=== PATIENT | female | born 1935 | race Caucasian/White ===

== ENCOUNTER 2021-02-06 22:22 | Inpatient (IN) | payer MEDICARE, BC ==
[~2021-02-06] VITALS: Ht 157.5 cm; Wt 51.7 kg
[2021-02-06] MEDS ORDERED: AMLO1CAP6 PO (22:36)
[2021-02-06] MEDS ORDERED: QUET25TA PO (22:36)
[2021-02-06] MEDS ORDERED: ACET-73 PO (22:36)
[2021-02-06] MEDS ORDERED: DONE10TA44 PO (22:36)
[2021-02-06] MEDS ORDERED: TRAZ-182 PO (22:36)
[2021-02-06] MEDS ORDERED: TEMA15CA PO (22:36)
[2021-02-06] MEDS ORDERED: LORA-258 PO (22:36)
[2021-02-06] MEDS ORDERED: RISP0.5T65 PO (22:36)
[2021-02-06 22:59] LABS: HEMATOCRIT 40.9 % (31.2-41.9); MEAN CORPUSCULAR HEMOGLOBIN 29.6 uug (24.7-32.8); MEAN CORPUSCULAR VOLUME 90.6 fL (75.5-95.3); PLATELET COUNT (AUTO) 254 K/uL (179-408)
[2021-02-06 23:12] LABS: CREATININE 1.1 mg/dL (0.6-1.3); POTASSIUM 3.9 mmol/L (3.5-5.1)
[2021-02-06 23:17] LABS: BILIRUBIN,DIRECT 0.1 mg/dL (0.0-0.2); BILIRUBIN,TOTAL 0.2 mg/dL (0.2-1.0); TOTAL PROTEIN, SERUM 6.9 g/dL (6.4-8.2)
[2021-02-06] MEDS ORDERED: LORAZEPAM 2 MG/1 ML VIAL IV ONE (23:30)
[2021-02-06] MEDS ORDERED: LORAZEPAM 2 MG/1 ML VIAL ONE (23:49)
[2021-02-07] MEDS ORDERED: PIPERACILLIN SODIUM/TAZOBACTAM 3.375 G in IV DEXTROSE 5% 50 ML IV ONE (01:00)
[2021-02-07] MEDS ORDERED: LORAZEPAM 2 MG/1 ML VIAL IV ONE (01:00)
[2021-02-07] MEDS ORDERED: LORAZEPAM 2 MG/1 ML VIAL ONE (01:54)
[2021-02-07] MEDS ORDERED: PIPERACILLIN/TAZOBACTAM/D5W 50 ML IV ONE ×2 (01:55→02:18)
[2021-02-07] MEDS ORDERED: Z GUARD REMEDY PASTE 57 GM TUBE TOP PRN (02:15)
[2021-02-07] MEDS ORDERED: ONDANSETRON 4 MG/2 ML VIAL IV PRN (02:15)
[2021-02-07] MEDS ORDERED: MAGNESIUM HYDROXIDE 30 ML LIQUID UDC PO PRN (02:15)
[2021-02-07] MEDS ORDERED: LABETALOL HCL 100 MG/20 ML VIAL IV ONE (05:15)
[2021-02-07] MEDS ORDERED: LABETALOL HCL 100 MG/20 ML VIAL ONE (05:28)
[2021-02-07 07:06] VITALS: BP 167/86
[2021-02-07] MEDS: PANTOPRAZOLE SODIUM 40 MG TABLET.DR PO SCH (08:00)
[2021-02-07 08:28] LABS: HEMATOCRIT 42.6 % (31.2-41.9); MEAN CORPUSCULAR HEMOGLOBIN 30.8 uug (24.7-32.8); MEAN CORPUSCULAR VOLUME 90.6 fL (75.5-95.3); PLATELET COUNT (AUTO) 293 K/uL (179-408)
[2021-02-07 08:54] LABS: MAGNESIUM 2.1 mg/dL (1.8-2.4); PHOSPHOROUS 3.1 mg/dL (2.5-4.9); POTASSIUM 3.5 mmol/L (3.5-5.1)
[2021-02-07] MEDS ORDERED: PIPERACILLIN SODIUM/TAZOBACTAM 3.375 G in IV DEXTROSE 5% 50 ML IV SCH (09:00)
[2021-02-07] MEDS: PIPERACILLIN SODIUM/TAZOBACTAM 3.375 G in IV DEXTROSE 5% 100 ML IV SCH ×2 (09:45→18:24)
[2021-02-07] MEDS: QUETIAPINE FUMARATE 25 MG TABLET PO SCH ×3 (11:00→17:00)
[2021-02-07] MEDS ORDERED: hydrALAZINE HCL 25 MG TABLET PO PRN (11:00)
[2021-02-07 11:33] LABS: THYROID STIMULATING HORMONE 1.729 mIU/mL (0.358-3.740)
[2021-02-07] MEDS: LORAZEPAM 0.5 MG TABLET PO PRN (11:55)
[2021-02-07] MEDS: DONEPEZIL 10 MG TABLET PO SCH ×2 (11:55→12:00)
[2021-02-07] MEDS: AMLODIPINE 5 MG TABLET PO SCH (12:00)
[2021-02-07] MEDS: BENAZEPRIL HCL 20 MG TABLET PO SCH (12:00)
[2021-02-07] MEDS ORDERED: HALOPERIDOL DECANOATE 50 MG/1 ML AMPUL IM ONE (12:15)
[2021-02-07] MEDS ORDERED: HALOPERIDOL LACTATE 5 MG/1 ML VIAL IM ONE (12:30)
[2021-02-07 15:58] VITALS: BP 153/88
[2021-02-07] MEDS: ACETAMINOPHEN 325 MG TABLET PO PRN (18:40)
[2021-02-07 20:00] VITALS: BP 137/87
[2021-02-07] MEDS: TRAZODONE 50 MG TABLET PO SCH (21:09)
[2021-02-07] MEDS: ATORVASTATIN 40 MG TABLET PO SCH (21:09)
[2021-02-07] MEDS: risperiDONE 0.5 MG TABLET PO SCH (21:13)
[2021-02-08 00:05] VITALS: BP 111/73
[2021-02-08] MEDS: ACETAMINOPHEN 325 MG TABLET PO PRN (00:05)
[2021-02-08] MEDS: TEMAZEPAM 15 MG CAPSULE PO PRN (00:06)
[2021-02-08] MEDS: PIPERACILLIN SODIUM/TAZOBACTAM 3.375 G in IV DEXTROSE 5% 100 ML IV SCH ×3 (01:34→17:12)
[2021-02-08 04:13] VITALS: BP 111/69
[2021-02-08 06:19] LABS: HEMATOCRIT 40.1 % (31.2-41.9); MEAN CORPUSCULAR HEMOGLOBIN 30.1 uug (24.7-32.8); MEAN CORPUSCULAR VOLUME 89.9 fL (75.5-95.3); PLATELET COUNT (AUTO) 257 K/uL (179-408)
[2021-02-08] MEDS: PANTOPRAZOLE SODIUM 40 MG TABLET.DR PO SCH (06:31)
[2021-02-08 06:45] LABS: BILIRUBIN,TOTAL 0.6 mg/dL (0.2-1.0); CREATININE 1.3 mg/dL (0.6-1.3); MAGNESIUM 2.2 mg/dL (1.8-2.4); PHOSPHOROUS 4.1 mg/dL (2.5-4.9); POTASSIUM 4.3 mmol/L (3.5-5.1); TOTAL PROTEIN, SERUM 6.8 g/dL (6.4-8.2)
[2021-02-08] MEDS: AMLODIPINE 5 MG TABLET PO SCH (08:55)
[2021-02-08] MEDS: DONEPEZIL 10 MG TABLET PO SCH (08:55)
[2021-02-08] MEDS: LORAZEPAM 0.5 MG TABLET PO PRN (08:55)
[2021-02-08] MEDS: QUETIAPINE FUMARATE 25 MG TABLET PO SCH ×2 (08:56→17:00)
[2021-02-08] MEDS: BENAZEPRIL HCL 20 MG TABLET PO SCH (08:56)
[2021-02-08 11:58] VITALS: BP 156/85
[2021-02-08 16:09] VITALS: BP 145/83
[2021-02-08 20:00] VITALS: BP 160/83
[2021-02-08 20:52] VITALS: BP 146/81
[2021-02-08] MEDS: ATORVASTATIN 40 MG TABLET PO SCH (21:00)
[2021-02-08] MEDS: TRAZODONE 50 MG TABLET PO SCH (21:00)
[2021-02-08] MEDS: risperiDONE 0.5 MG TABLET PO SCH (21:00)
[2021-02-09] VITALS: BP 162/77
[2021-02-09 04:00] VITALS: BP 165/94
[2021-02-09] MEDS: PANTOPRAZOLE SODIUM 40 MG TABLET.DR PO SCH (06:22)
[2021-02-09 06:25] VITALS: BP 149/90
[2021-02-09] MEDS: QUETIAPINE FUMARATE 25 MG TABLET PO SCH ×2 (09:04→17:23)
[2021-02-09] MEDS: DONEPEZIL 10 MG TABLET PO SCH (09:05)
[2021-02-09] MEDS: AMLODIPINE 5 MG TABLET PO SCH (09:05)
[2021-02-09] MEDS: BENAZEPRIL HCL 20 MG TABLET PO SCH (09:05)
[2021-02-09 12:00] VITALS: BP 134/74
[2021-02-09 16:26] VITALS: BP 142/94
[2021-02-09 20:20] VITALS: BP 131/88
[2021-02-09] MEDS: ATORVASTATIN 40 MG TABLET PO SCH (21:31)
[2021-02-09] MEDS: TRAZODONE 50 MG TABLET PO SCH (21:31)
[2021-02-09] MEDS: risperiDONE 0.25 MG TABLET PO SCH (21:32)
[2021-02-09] MEDS: ACETAMINOPHEN 325 MG TABLET PO PRN (22:45)
[2021-02-10 04:20] VITALS: BP 122/73
[2021-02-10] MEDS: PANTOPRAZOLE SODIUM 40 MG TABLET.DR PO SCH (06:11)
[2021-02-10 06:30] LABS: HEMATOCRIT 39.9 % (31.2-41.9); MEAN CORPUSCULAR HEMOGLOBIN 30.5 uug (24.7-32.8); MEAN CORPUSCULAR VOLUME 90.4 fL (75.5-95.3); PLATELET COUNT (AUTO) 253 K/uL (179-408)
[2021-02-10 06:55] LABS: CREATININE 1.1 mg/dL (0.6-1.3); MAGNESIUM 2.3 mg/dL (1.8-2.4); POTASSIUM 3.7 mmol/L (3.5-5.1)
[2021-02-10] MEDS: AMLODIPINE 5 MG TABLET PO SCH (08:57)
[2021-02-10] MEDS: DONEPEZIL 10 MG TABLET PO SCH (08:58)
[2021-02-10] MEDS: QUETIAPINE FUMARATE 25 MG TABLET PO SCH ×2 (08:58→17:33)
[2021-02-10] MEDS: BENAZEPRIL HCL 20 MG TABLET PO SCH (08:58)
[2021-02-10 12:00] VITALS: BP 131/44
[2021-02-10] MEDS: LORAZEPAM 0.5 MG TABLET PO PRN (12:42)
[2021-02-10 16:03] VITALS: BP 106/69
[2021-02-10] MEDS: ENSURE ENLIVE (VAN) 240 ML LIQUID PO SCH (17:33)
[2021-02-10 20:05] VITALS: BP 109/70
[2021-02-10] MEDS: TRAZODONE 50 MG TABLET PO SCH (21:00)
[2021-02-10] MEDS: ATORVASTATIN 40 MG TABLET PO SCH (21:00)
[2021-02-10] MEDS: risperiDONE 0.25 MG TABLET PO SCH (21:00)
[2021-02-10] MEDS: TEMAZEPAM 15 MG CAPSULE PO PRN (23:44)
[2021-02-11 04:10] VITALS: BP 144/87
[2021-02-11] MEDS: PANTOPRAZOLE SODIUM 40 MG TABLET.DR PO SCH (06:16)
[2021-02-11] MEDS: DONEPEZIL 10 MG TABLET PO SCH (08:25)
[2021-02-11] MEDS: BENAZEPRIL HCL 20 MG TABLET PO SCH (08:25)
[2021-02-11] MEDS: QUETIAPINE FUMARATE 25 MG TABLET PO SCH (08:25)
[2021-02-11] MEDS: AMLODIPINE 5 MG TABLET PO SCH (08:25)
[2021-02-11] MEDS: ENSURE ENLIVE (VAN) 240 ML LIQUID PO SCH (08:40)
[2021-02-11] MEDS ORDERED: ATOR20TA PO (10:59)
[2021-02-11] MEDS ORDERED: AMOX-430 PO (10:59)
[2021-02-11 13:11] VITALS: BP 135/81
[2021-02-11 15:35] VITALS: BP 132/81
== END 2021-02-11 15:45 | DRG 871 ==
LOC: ER 22:25 → TELE3 02-07 06:06 → MEDSURG3 02-09 10:51
PROVIDERS: ADMIT Hospitalist; ATTEND Hospitalist
DX: A41.9 Sepsis, unspecified organism (principal); G92 Toxic encephalopathy; J18.9 Pneumonia, unspecified organism; J69.0 Pneumonitis due to inhalation of food and vomit; N17.0 Acute kidney failure with tubular necrosis; D68.59 Other primary thrombophilia; E46 Unspecified protein-calorie malnutrition; Z20.822 Contact with and (suspected) exposure to COVID-19; Z74.09 Other reduced mobility; F03.90 Unspecified dementia, unspecified severity, without behavioral disturbance, psychotic disturbance, mood disturbance, and anxiety; E78.5 Hyperlipidemia, unspecified; Z86.73 Personal history of transient ischemic attack (TIA), and cerebral infarction without residual deficits; G58.9 Mononeuropathy, unspecified; M48.02 Spinal stenosis, cervical region; I11.9 Hypertensive heart disease without heart failure; Z68.20 Body mass index [BMI] 20.0-20.9, adult; Z91.81 History of falling
CPT/HCPCS: 36415; 70030-TC; 70450; 71045; 72125; 83735; 84100; 84443; 85025; 85730; 87040; 87070; 93005; G0378; J1630; J2060; J2543; J3490; J7050; J7060

== ENCOUNTER 2021-04-05 07:07 | Inpatient (IN) | payer MEDICARE, BC ==
[~2021-04-05] VITALS: Ht 152.4 cm; Wt 48.5 kg
[~2021-04-05 07:07] MED LIST: ACET-73 PO; AMLO1CAP6 PO; AMOX-430 PO; ATOR20TA PO; DONE10TA44 PO; LORA-258 PO; QUET25TA PO; RISP0.5T65 PO; TEMA15CA PO; TRAZ-182 PO
[2021-04-05] MEDS ORDERED: ONDANSETRON HCL 4 MG TABLET PO ONE (07:15)
[2021-04-05] MEDS ORDERED: MORPHINE SULFATE 2 MG/1 ML DISP.SYRIN IM ONE (07:15)
[2021-04-05 07:34] LABS: HEMATOCRIT 41.1 % (31.2-41.9); MEAN CORPUSCULAR HEMOGLOBIN 30.5 uug (24.7-32.8); MEAN CORPUSCULAR VOLUME 91.2 fL (75.5-95.3); PLATELET COUNT (AUTO) 216 K/uL (179-408)
[2021-04-05] MEDS ORDERED: TEMA30CA PO (07:36)
[2021-04-05 07:39] LABS: CREATININE 0.9 mg/dL (0.6-1.3); POTASSIUM 3.3 mmol/L (3.5-5.1)
[2021-04-05 07:45] LABS: BILIRUBIN,DIRECT 0.1 mg/dL (0.0-0.2); BILIRUBIN,TOTAL 0.4 mg/dL (0.2-1.0); TOTAL PROTEIN, SERUM 7.2 g/dL (6.4-8.2)
[2021-04-05] MEDS ORDERED: MORPHINE SULFATE 2 MG/1 ML DISP.SYRIN ONE ×2 (08:06→08:25)
[2021-04-05] MEDS ORDERED: ONDANSETRON ODT 4 MG TAB.RAPDIS ONE (08:06)
[2021-04-05] MEDS ORDERED: ONDANSETRON 4 MG/2 ML VIAL IV PRN (09:15)
[2021-04-05] MEDS ORDERED: IV D5 1/2 NS 1000 ML 1,000 ML IV PRN (09:15)
[2021-04-05] MEDS ORDERED: ACETAMINOPHEN 325 MG TABLET PO PRN (09:15)
[2021-04-05] MEDS ORDERED: Z GUARD REMEDY PASTE 57 GM TUBE TOP PRN (09:15)
[2021-04-05] MEDS ORDERED: MAGNESIUM HYDROXIDE 30 ML LIQUID UDC PO PRN ×2 (09:15→17:45)
--- NOTE | 2021-04-05 09:45 | NUR ---
Ortho MD Vitale paged per MD orders, awaiting returned call
[2021-04-05] MEDS ORDERED: ACETAMINOPHEN ES 500 MG TABLET PO PRN (11:15)
[2021-04-05] MEDS ORDERED: TEMAZEPAM 15 MG CAPSULE PO PRN (11:15)
[2021-04-05] MEDS ORDERED: LORAZEPAM 0.5 MG TABLET PO PRN (11:15)
[2021-04-05] MEDS: MORPHINE SULFATE 2 MG/1 ML DISP.SYRIN IV PRN ×2 (13:04→19:04)
--- NOTE | 2021-04-05 13:30 | NUR ---
PT IN BED RESTING, COMPLAINTS OF PAIN. CONFUSED, A & O X 1. BRUISING ON ALL FOUR EXTREMITIES. CAME IN FOR HIP FRACTURE POST FALL. NO SIGNS OF DISTRESS. PAIN MEDICATION TO BE GIVEN ORDERED. BED LOW AND LOCKED, CALL LIGHT WITHIN REACH, BED ALARM ON. APPLIED NASAL CANNULA BUT PT PULLED OFF AND REFUSED. WILL CONTINUE TO MONITOR.
[2021-04-05 14:25] VITALS: BP 173/93
[2021-04-05] MEDS: DONEPEZIL 10 MG TABLET PO SCH (14:29)
[2021-04-05] MEDS: BENAZEPRIL HCL 20 MG TABLET PO SCH (14:29)
[2021-04-05] MEDS: AMLODIPINE 5 MG TABLET PO SCH (14:30)
[2021-04-05] MEDS ORDERED: MORPHINE SULFATE 2 MG/1 ML DISP.SYRIN IV ONE (15:00)
--- NOTE | 2021-04-05 15:00 | NUR ---
PT HAS SURGERY SCHEDULED FOR 132904/06/21 WITH NATALIE. IM NAILING OF THE RIGHT HIP. WILL OBTAIN CONSENT.
[2021-04-05] MEDS ORDERED: AMOXICILLIN-CLAVUL 875-125MG TABLET PO SCH (17:00)
--- NOTE | 2021-04-05 17:30 | NUR ---
FAMILY AT BEDSIDE, SPOKE WITH NATALIE. SURGICAL CONSENT OBTAINED. WILL CONTINUE TO MONITOR.
[2021-04-05] MEDS ORDERED: BISACODYL 10 MG SUPP.RECT RC ONE (18:00)
[2021-04-05] MEDS: QUETIAPINE FUMARATE 25 MG TABLET PO SCH (19:05)
[2021-04-05 20:03] VITALS: BP 150/98
[2021-04-05 20:15] VITALS: BP 150/98
[2021-04-05] MEDS: ATORVASTATIN 20 MG TABLET PO SCH (20:34)
[2021-04-05] MEDS: SENNOSIDES/DOCUSATE SODIUM TABLET PO SCH (20:34)
[2021-04-05] MEDS: DOCUSATE SODIUM 100 MG CAPSULE PO SCH (20:34)
[2021-04-05] MEDS: TRAZODONE 50 MG TABLET PO SCH (20:34)
[2021-04-05] MEDS ORDERED: risperiDONE 0.5 MG TABLET PO SCH (21:00)
[2021-04-06] MEDS: MORPHINE SULFATE 2 MG/1 ML DISP.SYRIN IV PRN ×3 (01:10→17:49)
[2021-04-06 04:15] VITALS: BP 130/82
--- NOTE | 2021-04-06 05:46 | NUR ---
Pt slept intermittently throughout the night. Would moan in pain, given morphine, tolerated well. Pt confused but able to be redirected. On 2L NC satting 93%. Patient keeps removing nasal canula and was educated on importance of oxygen. Pt NPO after midnight due to surgery scheduled for today. Consent signed and checklist complete. No other issues or concerned at this time, will endorse to day shift.
[2021-04-06 06:45] LABS: HEMATOCRIT 35.6 % (31.2-41.9); MEAN CORPUSCULAR HEMOGLOBIN 30.4 uug (24.7-32.8); MEAN CORPUSCULAR VOLUME 91.5 fL (75.5-95.3); PLATELET COUNT (AUTO) 200 K/uL (179-408)
[2021-04-06 07:04] LABS: CREATININE 1.2 mg/dL (0.6-1.3); MAGNESIUM 1.7 mg/dL (1.8-2.4); PHOSPHOROUS 3.6 mg/dL (2.5-4.9); POTASSIUM 3.6 mmol/L (3.5-5.1)
[2021-04-06 07:21] LABS: *BILIRUBIN,URIN NEGATIVE (NEGATIVE); *BLOOD, URINE NEGATIVE (NEGATIVE); *CLARITY,URINE CLEAR (CLEAR); *COLOR,URINE YELLOW (YELLOW); *KETONES,URINE NEGATIVE (NEGATIVE); *UROBILINOGEN,URINE 0.2 E.U./dl (NORMAL); LEUKOCYTE ESTERASE ,URINE NEGATIVE (NEGATIVE); NITRITE, URINE NEGATIVE (NEGATIVE); UGLUCOSE NEGATIVE (NEGATIVE)
--- NOTE | 2021-04-06 07:30 | NUR ---
Patient received in bed, alert and oriented to self only and confused. Requires frequent redirection. O2 2L via NC at this time, but patient pulls it off. Need frequent reminders to keep it on. Patient has mcleod draining clear zelda urine via gravity. NPO at this time for procedure around [address] Vitale. Left FA IV intact with IVF running as ordered. Call rasmussen within easy reach. Will continue to monitor.
[2021-04-06 08:03] LABS: THYROID STIMULATING HORMONE 1.22 mIU/mL (0.358-3.740)
[2021-04-06] MEDS: AMLODIPINE 5 MG TABLET PO SCH (09:00)
[2021-04-06] MEDS: BENAZEPRIL HCL 20 MG TABLET PO SCH (09:00)
[2021-04-06] MEDS: DONEPEZIL 10 MG TABLET PO SCH (09:00)
[2021-04-06] MEDS: QUETIAPINE FUMARATE 25 MG TABLET PO SCH ×2 (09:00→17:48)
[2021-04-06] MEDS: POTASSIUM CHLORIDE 50 ML IV SCH ×2 (10:00→11:41)
[2021-04-06] MEDS: PANTOPRAZOLE SODIUM 40 MG VIAL IV SCH (10:00)
[2021-04-06 10:31] LABS: BACTERIA,URINE FEW /HPF (NONE SEEN); RBC,URINE 0-3 /HPF (0-3); WBC,URINE 0-3 /HPF (0-3)
[2021-04-06 10:32] LABS: SQUAMOUS EPITHELIAL CELL,UR FEW /HPF (NONE SEEN)
[2021-04-06 11:17] VITALS: BP 141/72
[2021-04-06] MEDS ORDERED: ROCURONIUM BROMIDE 50 MG/5 ML VIAL ONE (13:39)
[2021-04-06] MEDS ORDERED: FENTANYL CITRATE 100 MCG/2 ML AMPUL ONE (13:39)
[2021-04-06] MEDS ORDERED: CEFAZOLIN 1 G in IV DEXTROSE 5% 50 ML IV SCH (14:00)
[2021-04-06] MEDS ORDERED: TRIAMCINOLONE ACETONIDE 40 MG/1 ML VIAL ONE (15:23)
[2021-04-06] MEDS ORDERED: VANCOMYCIN 1000 MG VIAL ONE ×2 (15:24→15:26)
[2021-04-06] MEDS ORDERED: BUPIVACAINE/EPI PF 0.5% 10 ML VIAL ONE (15:38)
[2021-04-06] MEDS ORDERED: BUPIVACAINE PF 0.5% 30 ML VIAL ONE (15:38)
[2021-04-06] MEDS ORDERED: GLYCOPYRROLATE 0.2 MG/ML VIAL IJ ONE (15:55)
[2021-04-06] MEDS ORDERED: CEFAZOLIN 1 G VIAL IM ONE (15:55)
[2021-04-06] MEDS ORDERED: PROPOFOL 200 MG/20 ML BOTTLE IV ONE (15:55)
[2021-04-06] MEDS ORDERED: ONDANSETRON 4 MG/2 ML VIAL IV ONE (15:55)
[2021-04-06] MEDS ORDERED: NEOSTIGMINE METHYLSULFATE 10 MG/10 ML VIAL IM ONE (15:55)
[2021-04-06] MEDS ORDERED: SEVOFLURANE 250 ML BOTTLE IH ONE (15:55)
[2021-04-06] MEDS ORDERED: EPHEDRINE SULFATE 50 MG/ML AMPUL IM ONE (15:55)
[2021-04-06] MEDS ORDERED: PHENYLEPHRINE 10 MG/1 ML VIAL IV ONE (15:55)
[2021-04-06] MEDS ORDERED: LIDOCAINE-MPF 2% 5 ML VIAL IJ ONE (15:55)
[2021-04-06] MEDS ORDERED: MORPHINE SULFATE 2 MG/1 ML DISP.SYRIN ONE (16:24)
[2021-04-06] MEDS: MAGNESIUM SULFATE/D5W 100 ML IV SCH ×2 (18:17→19:16)
[2021-04-06] MEDS: ATORVASTATIN 20 MG TABLET PO SCH (20:02)
[2021-04-06] MEDS: SENNOSIDES/DOCUSATE SODIUM TABLET PO SCH (20:02)
[2021-04-06] MEDS: TRAZODONE 50 MG TABLET PO SCH (20:02)
[2021-04-06] MEDS: DOCUSATE SODIUM 100 MG CAPSULE PO SCH (20:03)
[2021-04-06 20:10] VITALS: BP 147/75
[2021-04-06] MEDS: IV D5W-0.45% NS +20 KCL 1,000 ML IV PRN (20:38)
[2021-04-07] MEDS: CEFAZOLIN 1 G in IV DEXTROSE 5% 50 ML IV SCH ×2 (00:12→06:18)
[2021-04-07] MEDS: MORPHINE SULFATE 2 MG/1 ML DISP.SYRIN IV PRN ×3 (01:41→12:47)
[2021-04-07 04:44] VITALS: BP 98/53
--- NOTE | 2021-04-07 06:22 | NUR ---
Pt slept intermittently throughout the night. Given morphine for pain, tolerated well. No distress noted. IV site intact. Fernandez draining clear, zelda yellow urine. Safety and comfort provided. Will endorse to day shift.
[2021-04-07 06:36] LABS: HEMATOCRIT 28.8 % (31.2-41.9); MEAN CORPUSCULAR HEMOGLOBIN 30.9 uug (24.7-32.8); MEAN CORPUSCULAR VOLUME 92.5 fL (75.5-95.3); PLATELET COUNT (AUTO) 177 K/uL (179-408)
[2021-04-07 06:59] LABS: CREATININE 1.2 mg/dL (0.6-1.3); MAGNESIUM 2.1 mg/dL (1.8-2.4); PHOSPHOROUS 3.6 mg/dL (2.5-4.9); POTASSIUM 4.7 mmol/L (3.5-5.1)
--- NOTE | 2021-04-07 07:30 | NUR ---
Patient received in bed, alert and oriented to self only and confused. Requires frequent reinforcements. O2 2L via NC at this time, but patient pulls it off. Need frequent reminders to keep it on. Patient has mcleod draining clear zelda urine via gravity. Left FA IV intact with IVF running as ordered. Right thigh dressing C/D/I. Call rasmussen within easy reach. Will continue to monitor.
[2021-04-07 07:50] VITALS: BP 100/59
[2021-04-07] MEDS: PANTOPRAZOLE SODIUM 40 MG VIAL IV SCH (08:26)
[2021-04-07] MEDS: AMLODIPINE 5 MG TABLET PO SCH (08:26)
[2021-04-07] MEDS: DONEPEZIL 10 MG TABLET PO SCH (08:26)
[2021-04-07] MEDS: BENAZEPRIL HCL 20 MG TABLET PO SCH (08:27)
[2021-04-07] MEDS: QUETIAPINE FUMARATE 25 MG TABLET PO SCH ×2 (08:27→16:25)
--- NOTE | 2021-04-07 09:00 | NUR ---
Patient with physical therapist, becomes combative when moved or touched. Tolerated poorly.
[2021-04-07] MEDS: IV D5W-0.45% NS +20 KCL 1,000 ML IV PRN ×2 (10:40→23:34)
[2021-04-07 11:19] VITALS: BP 102/57
[2021-04-07 14:48] VITALS: BP 106/55
[2021-04-07] MEDS: ENSURE ENLIVE (VAN) 240 ML LIQUID PO SCH (17:00)
[2021-04-07 20:10] VITALS: BP 141/77
[2021-04-07] MEDS: DOCUSATE SODIUM 100 MG CAPSULE PO SCH ×2 (21:51→22:00)
[2021-04-07] MEDS: TRAZODONE 50 MG TABLET PO SCH ×2 (21:51→22:00)
[2021-04-07] MEDS: ATORVASTATIN 20 MG TABLET PO SCH ×2 (21:51→22:01)
[2021-04-07] MEDS: SENNOSIDES/DOCUSATE SODIUM TABLET PO SCH ×2 (21:51→22:01)
[2021-04-08] MEDS: MORPHINE SULFATE 2 MG/1 ML DISP.SYRIN IV PRN ×4 (00:06→21:04)
[2021-04-08 04:15] VITALS: BP 116/70
[2021-04-08 06:16] LABS: HEMATOCRIT 29.6 % (31.2-41.9); MEAN CORPUSCULAR HEMOGLOBIN 31.1 uug (24.7-32.8); MEAN CORPUSCULAR VOLUME 91.9 fL (75.5-95.3); PLATELET COUNT (AUTO) 163 K/uL (179-408)
[2021-04-08] MEDS: PANTOPRAZOLE SODIUM 40 MG TABLET.DR PO SCH (06:16)
[2021-04-08 06:34] LABS: CARBON DIOXIDE 27 mmol/L (21-32); CHLORIDE 108 mmol/L (98-107); CREATININE 1.1 mg/dL (0.6-1.3); GLUCOSE 108 mg/dL (74-106); MAGNESIUM 2.1 mg/dL (1.8-2.4); PHOSPHOROUS 2.6 mg/dL (2.5-4.9); POTASSIUM 4.4 mmol/L (3.5-5.1); UREA NITROGEN, BLOOD 15 mg/dL (7-18)
--- NOTE | 2021-04-08 07:30 | NUR ---
Patient received in bed, alert and oriented to self only and confused. Requires frequent reinforcements. O2 2L via NC at this time, but patient pulls it off. Need frequent reminders to keep it on. Left hand IV intact, IVF running as ordered. Right thigh dressing C/D/I. Call rasmussen within easy reach. Will continue to monitor.
[2021-04-08] MEDS: DONEPEZIL 10 MG TABLET PO SCH ×2 (08:20→08:28)
[2021-04-08] MEDS: ENSURE ENLIVE (VAN) 240 ML LIQUID PO SCH ×3 (08:20→17:31)
[2021-04-08] MEDS: QUETIAPINE FUMARATE 25 MG TABLET PO SCH ×3 (08:20→17:00)
[2021-04-08] MEDS: BENAZEPRIL HCL 20 MG TABLET PO SCH (08:20)
[2021-04-08] MEDS: AMLODIPINE 5 MG TABLET PO SCH (08:21)
--- NOTE | 2021-04-08 08:30 | NUR ---
Patient agitated when trying to give medications or when trying to feed breakfast. Refuses everything and attempts to swipe at anything given to her. Attempted multiple times, but continues to get agitated with attempts.
--- NOTE | 2021-04-08 10:31 | NUR ---
Patient pulled IV and after multiple attempts of new IV insertion, MD notified and midline insertion ordered and approved.
[2021-04-08 12:00] VITALS: BP 181/113
--- NOTE | 2021-04-08 12:02 | NUR ---
Midline nurse here. New order for mittens at this time from Erika Woodard, so patient does not pull midline. Will continue to monitor.
[2021-04-08 16:00] VITALS: BP 189/114
[2021-04-08] MEDS: IV D5W-0.45% NS +20 KCL 1,000 ML IV PRN (17:20)
--- NOTE | 2021-04-08 17:40 | NUR ---
Daughter at bedside.
--- NOTE | 2021-04-08 20:00 | NUR ---
RECEIVED PATIENT AWAKE IN BED. ALERT TO SELF ONLY. CONFUSED AND DISORIENTED. BILATERAL MITTENS NOTED TO BOTH HAND. PATIENT HAS IVF INFUSING TO MID-LINE RIGHT UPPER ARM. DRESSING NOTED TO RIGHT HIP, C/D/I. PATIENT DENIES PAIN WHEN ASKED, NO FACIAL GRIMACE NOTED AT THIS TIME. NO RESP. DISTRESS NOTED. O2 2L NC NOTED. CALL LIGHT IN REACH. ALL NEEDS ATTENDED. WILL CONTINUE TO MONITOR AND ASSESS.
[2021-04-08 20:09] VITALS: BP 145/76
[2021-04-08] MEDS: TRAZODONE 50 MG TABLET PO SCH (20:28)
[2021-04-08] MEDS: ATORVASTATIN 20 MG TABLET PO SCH (20:28)
[2021-04-08] MEDS: DOCUSATE SODIUM 100 MG CAPSULE PO SCH (20:28)
[2021-04-08] MEDS: SENNOSIDES/DOCUSATE SODIUM TABLET PO SCH (20:28)
--- NOTE | 2021-04-08 20:35 | NUR ---
PATIENT REFUSED HS MEDICATIONS.
--- NOTE | 2021-04-08 21:05 | NUR ---
PATIENT AWAKE IN BED. REPOSITIONED. PATIENT YELLING OUT AND GUARDING RIGHT HIP. FACIAL GRIMACE NOTED. VS WNL. PATIENT GIVEN MORPHINE 2MG IV PRN PER RN. WILL CONTINUE TO MONITOR AND ASSESS.
[2021-04-09] MEDS: IV D5W-0.45% NS +20 KCL 1,000 ML IV PRN ×3 (02:36→22:26)
[2021-04-09 04:21] VITALS: BP 140/75
[2021-04-09] MEDS: PANTOPRAZOLE SODIUM 40 MG TABLET.DR PO SCH (06:05)
[2021-04-09 06:08] LABS: HEMATOCRIT 30.4 % (31.2-41.9); MEAN CORPUSCULAR VOLUME 90.9 fL (75.5-95.3); PLATELET COUNT (AUTO) 201 K/uL (179-408)
[2021-04-09 06:22] LABS: CREATININE 0.9 mg/dL (0.6-1.3); MAGNESIUM 1.7 mg/dL (1.8-2.4); PHOSPHOROUS 2.4 mg/dL (2.5-4.9)
--- NOTE | 2021-04-09 07:00 | NUR ---
Patient received in bed, alert and oriented to self only and confused. Requires frequent redirection. Patient has Fernandez draining clear zelda urine via gravity. Left FA IV intact with IVF running as ordered. Call rasmussen within easy reach. Will continue to monitor.
[2021-04-09] MEDS: BENAZEPRIL HCL 20 MG TABLET PO SCH (08:07)
[2021-04-09] MEDS: QUETIAPINE FUMARATE 25 MG TABLET PO SCH ×2 (08:07→16:15)
[2021-04-09] MEDS: DONEPEZIL 10 MG TABLET PO SCH (08:07)
[2021-04-09] MEDS: AMLODIPINE 5 MG TABLET PO SCH (08:07)
[2021-04-09] MEDS: ENSURE ENLIVE (VAN) 240 ML LIQUID PO SCH ×3 (08:11→17:00)
[2021-04-09] MEDS: MORPHINE SULFATE 2 MG/1 ML DISP.SYRIN IV PRN (10:30)
--- NOTE | 2021-04-09 11:00 | NUR ---
pt is resting in her bed son is at bed side call light with in reach
[2021-04-09] MEDS: MAGNESIUM SULFATE/D5W 100 ML IV SCH ×2 (11:02→12:24)
[2021-04-09 11:09] VITALS: BP 151/91
[2021-04-09 15:10] VITALS: BP 141/83
[2021-04-09] MEDS ORDERED: NEUTRA PHOS PACKET PO ONE (15:30)
[2021-04-09 20:09] VITALS: BP 147/97
[2021-04-09] MEDS: DOCUSATE SODIUM 100 MG CAPSULE PO SCH (20:10)
[2021-04-09] MEDS: SENNOSIDES/DOCUSATE SODIUM TABLET PO SCH (20:10)
[2021-04-09] MEDS: ATORVASTATIN 20 MG TABLET PO SCH (20:10)
[2021-04-09] MEDS: TRAZODONE 50 MG TABLET PO SCH (20:10)
--- NOTE | 2021-04-10 02:43 | NUR ---
pt sleeping at this time call light with in reach
[2021-04-10 04:09] VITALS: BP 135/76
[2021-04-10] MEDS: PANTOPRAZOLE SODIUM 40 MG TABLET.DR PO SCH (06:04)
[2021-04-10] MEDS ORDERED: Lactose-Free Food PO (07:59)
[2021-04-10] MEDS ORDERED: BENA20TA9 PO (07:59)
[2021-04-10] MEDS ORDERED: MAGN400O6 PO (07:59)
[2021-04-10] MEDS ORDERED: AMLO-212 PO (07:59)
[2021-04-10] MEDS ORDERED: DOCU100C36 PO (07:59)
[2021-04-10] MEDS ORDERED: PANT40TA2 PO (07:59)
[2021-04-10] MEDS ORDERED: [UNRECOGNIZED DRUG - CODE] PO (07:59)
[2021-04-10] MEDS ORDERED: ACET325T53 PO (07:59)
[2021-04-10] MEDS: IV D5W-0.45% NS +20 KCL 1,000 ML IV PRN (08:58)
[2021-04-10] MEDS: QUETIAPINE FUMARATE 25 MG TABLET PO SCH (09:03)
[2021-04-10] MEDS: DONEPEZIL 10 MG TABLET PO SCH (09:03)
[2021-04-10] MEDS: BENAZEPRIL HCL 20 MG TABLET PO SCH (09:03)
[2021-04-10] MEDS: AMLODIPINE 5 MG TABLET PO SCH (09:04)
[2021-04-10] MEDS: ENSURE ENLIVE (VAN) 240 ML LIQUID PO SCH ×2 (09:04→13:28)
[2021-04-10 11:35] VITALS: BP 135/76
[2021-04-10 16:00] VITALS: BP 131/77
--- NOTE | 2021-04-10 16:55 | NUR ---
[facility]. Patient AO to self. On room air. No signs of acute distress. Patient denies pain/ discomfort. Wound care treatment done, wound pictures taken and placed in chart. Discharge paperwork given to ambulance crew for [facility]. IV access removed. ID armband removed. Belongings accounted for. Nursing report given to VERONICA Flores of [facility]. Patient left hospital via [facility] gurney.
== END 2021-04-10 16:45 | DRG 481 ==
LOC: ER 07:08 → MEDSURG3 12:01
PROVIDERS: ADMIT Registered Nurse; ATTEND Registered Nurse
PROC: 0QSB06Z Reposition Right Lower Femur with Intramedullary Internal Fixation Device, Open Approach (ICD-10-PCS; principal; 2021-04-06)
PROC: 05H533Z Insertion of Infusion Device into Right Subclavian Vein, Percutaneous Approach (ICD-10-PCS; 2021-04-08)
PROC: B546ZZA Ultrasonography of Right Subclavian Vein, Guidance (ICD-10-PCS; 2021-04-08)
DX: S72.141A Displaced intertrochanteric fracture of right femur, initial encounter for closed fracture (principal); D68.59 Other primary thrombophilia; F03.91 Unspecified dementia, unspecified severity, with behavioral disturbance; N17.9 Acute kidney failure, unspecified; M84.433A Pathological fracture, right radius, initial encounter for fracture; M84.431A Pathological fracture, right ulna, initial encounter for fracture; E87.6 Hypokalemia; E78.5 Hyperlipidemia, unspecified; F03.90 Unspecified dementia, unspecified severity, without behavioral disturbance, psychotic disturbance, mood disturbance, and anxiety; F41.9 Anxiety disorder, unspecified; I48.91 Unspecified atrial fibrillation; Z87.01 Personal history of pneumonia (recurrent); I10 Essential (primary) hypertension; M43.16 Spondylolisthesis, lumbar region; K59.00 Constipation, unspecified; K57.90 Diverticulosis of intestine, part unspecified, without perforation or abscess without bleeding; K44.9 Diaphragmatic hernia without obstruction or gangrene; Z86.73 Personal history of transient ischemic attack (TIA), and cerebral infarction without residual deficits; Z74.09 Other reduced mobility; M85.80 Other specified disorders of bone density and structure, unspecified site; Z91.81 History of falling; S66.911A Strain of unspecified muscle, fascia and tendon at wrist and hand level, right hand, initial encounter; W18.30XA Fall on same level, unspecified, initial encounter; Y93.9 Activity, unspecified; Y92.89 Other specified places as the place of occurrence of the external cause; R93.89 Abnormal findings on diagnostic imaging of other specified body structures; Z20.822 Contact with and (suspected) exposure to COVID-19
CPT/HCPCS: 36415; 70450; 71045; 71250; 72170; 73110; 73502; 73503; 83735; 84100; 84443; 85025; 85730; 86850; 86900; 86901; 87040; 93307; 97161; A4649; A4663; C1713; C9113; G0378; J0690; J2270; J2370; J2405; J3010; J3301; J3370; J3475; J3480; J3490; J7030; J7060; J7120; Q0162